=== PATIENT | male | born 1950 ===

== ENCOUNTER 2017-07-26 06:20 | Day surgery (SDC) | payer OTHER ==
[~2017-07-26 06:20] MED LIST: COZAAR50 MG PO; LOSARTAN POTASS25 MG PO; TOPROL XL25 MG PO; [UNRECOGNIZED DRUG - OTHER] PO
== END 2017-07-26 10:40 | disposition home or self-care (01) ==
LOC: AMB-ENDOS 06:20
DX: K64.1 Second degree hemorrhoids (principal)